=== PATIENT | male | born 1965 | race Two or more races ===

== ENCOUNTER 2023-01-27 07:30 | Inpatient (IN) | payer OTHER ==
[~2023-01-27] VITALS: Ht 165.1 cm; Wt 86.2 kg
[2023-01-27] MEDS ORDERED: ALTACE10 MG PO (09:18)
[2023-01-27] MEDS ORDERED: LOVASA (09:19)
[2023-01-27] MEDS ORDERED: VOLTA PO (09:20)
[2023-01-27] MEDS ORDERED: FERROUS SULF PO (09:20)
[2023-01-27] MEDS ORDERED: TRILIPIX135 MG PO (09:21)
[2023-02-02] MEDS ORDERED: IRON325 MG (07:48)
[2023-02-02] MEDS ORDERED: DICLOFENAC SODI75 MG PO (07:50)
[2023-02-02] MEDS ORDERED: LOVAZA1 GM PO (07:51)
[2023-02-03] MEDS ORDERED: DUI500 PO (07:59)
[2023-02-03] MEDS ORDERED: ELIQUIS2.5 MG PO (07:59)
[2023-02-03] MEDS ORDERED: PERCOCET 5-3251 EACH PO (07:59)
== END 2023-02-04 17:21 | DRG 470 ==
LOC: SURG 02-02 05:19 → O/R 02-02 05:19 → SURG 02-02 07:30
PROVIDERS: ADMIT Orthopaedic Surgery; ATTEND Orthopaedic Surgery
PROC: 0SRD0J9 Replacement of Left Knee Joint with Synthetic Substitute, Cemented, Open Approach (ICD-10-PCS; principal; 2023-02-02 10:00)
DX: M17.12 Unilateral primary osteoarthritis, left knee (principal); M22.12 Recurrent subluxation of patella, left knee; I10 Essential (primary) hypertension; Z96.652 Presence of left artificial knee joint